=== PATIENT | male | born 1955 | race Caucasian/White ===

== ENCOUNTER 2021-03-13 16:56 | Emergency (ER) | payer OTHER ==
[~2021-03-13] VITALS: Ht 175.3 cm; Wt 80.7 kg
== END 2021-03-13 18:15 | disposition home or self-care (01) ==
LOC: ER 16:56
DX: R23.8 Other skin changes (principal); R60.0 Localized edema

== ENCOUNTER 2021-05-24 12:43 | Outpatient (CLI) | payer OTHER | END 2021-05-24 12:48 | disposition home or self-care (01) | LOC: RAD 12:43 | DX: M79.642 Pain in left hand (principal); S62.337D Displaced fracture of neck of fifth metacarpal bone, left hand, subsequent encounter for fracture with routine healing ==

== ENCOUNTER 2021-06-29 10:41 | Emergency (ER) | payer OTHER ==
[~2021-06-29] VITALS: Ht 175.3 cm; Wt 79.4 kg
[2021-06-29] MEDS ORDERED: NORFLEX100MG PO (14:59)
[2021-06-29] MEDS ORDERED: KETO10TA2 PO (14:59)
== END 2021-06-29 15:10 | disposition home or self-care (01) ==
LOC: ER 10:41
DX: S39.012A Strain of muscle, fascia and tendon of lower back, initial encounter (principal); W19.XXXA Unspecified fall, initial encounter; Y93.9 Activity, unspecified; Y92.89 Other specified places as the place of occurrence of the external cause